=== PATIENT | male | born 1965 | race Caucasian/White ===

== ENCOUNTER 2016-08-16 18:59 | Emergency (ER) | payer MEDICAID ==
[~2016-08-16] VITALS: Ht 180.3 cm; Wt 99.8 kg
[~2016-08-16 18:59] MED LIST: GABAPENTIN300 MG PO; HYDROCODONE BIT1 T39 PO; LISINOPRIL 10MG10 MG PO; NICOTINE PATCH;21 MG TD; NORCO 325 MG-101 TAB PO; OMEPRAZOLE20 MG PO; PANTOPRAZOLE SO40 M1 PO
[2016-08-16 20:19] VITALS: BP 142/68
--- NOTE | 2016-08-16 20:25 | Emergency Room Report ---
History of Present Illness Time Seen by MD uLciano Presenting Problem in Triage Pt arrived:Walked Presenting Problem:PATIENT STATES HE HAS LOWER BACK PAIN FOR 2 DAYS. 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 N Clinical Suspician of Infection? N Mental Status: 1 - Regular (Normal Baseline) Sepsis Risk:Low Sepsis Risk Have you (or family members/close friends) recently traveled outside the [place]? N If Yes, where/when: Have you had exposure to infectious disease within the past month? TB? Other? Specify: Source patient, RN notes reviewed, family, old records Exam Limitations no limitations Comment hx of chronic low back pain with acute excerbation afterlifting - no bowel or bladder c/o- no cauda equina c/o Cardiac Chest Pain Chest pain indicative of cardiac No Timing/Duration this evening Severity moderate ALLERGIES Coded Allergies: ketorolac (From TORADOL) (Intermediate, 08/16/16) codeine (Mild, NA-NAUSEA 07/13/15) morphine (Mild, NA-NAUSEA/VOMITING 07/13/15) Home Medications Active Scripts NICOTINE (Nicotine Patch) 21 MG TD DAILY #14 PATCH Ref 1 Prov: 04/07/15 Reported Medications Pantoprazole Sodium 40 MG PO DAILY #30 Gabapentin (Gabapentin 300MG) 600 MG PO TID LISINOPRIL (Lisinopril) 10 MG PO DAILY History Medical History General CAD? No Angina: No [place]: No Hypertension? Yes Hyperlipidemia? No CHF? No DVT? No PE? No COPD? Yes Asthma? No Anemia? No GERD? No Gastric ulcers? No GI Bleed? No Hernia? No Thyroid Problems? No Hypothyroidism? No CVA? No Seizures? No Diabetes? No End Stage Renal Disease? No UTI? No Stones? No BPH? No GB Disease: No Nephritic Syndrome? No Asplenia? No Hepatitis? No Sickle Cell Disease? No Arthritis? Yes Migraines? No Cataracts? No Glaucoma? No MRSA? No HIV? No TB? No Anxiety? No Depression? No Cancer? No More? Yes Additional hx: BULGING DISK IN LOWER BACK Immunization Hx DT/Tetanus Unknown Pneumonia Never Had Surgical Hx Previous Surgery?Y L ARM REPAIR X4 BONE MARROW REMOVED L HIP Family History Family Hx Diabetes Yes CAD Yes Hypertension Yes Hyperlipidemia Yes Cancer Yes TB No Social History Smoking Hx Smoker: Current Every Day Smoker Tobacco: Yes Type Cigarettes Packs/day 1 1/2 - 2 Packs Alcohol Alcohol: Yes Drugs none Review of Systems All Other Systems Reviewed and Negative Constitutional denies fever Eyes denies drainage ENT denies: ear pain, epistaxis, throat pain. Respiratory denies cough, denies shortness of breath, denies wheezing Cardiovascular denies chest pain, denies palpitations, denies syncope Gastrointestinal denies abdominal pain, denies diarrhea, denies vomiting Genitourinary denies: dysuria, frequency, hesitancy, hematuria. Musculoskeletal see HPI, back pain, denies neck pain Skin denies rash Psychiatric/Neurological denies headache, denies seizure Physical Exam Vital Signs Vital Signs Date Time Temp Pulse Resp B/P Pulse O2 O2 Flow FiO2 Ox Delivery Rate 08/16 1905 98.0 89 20 142/68 98 - WBC >12,000 or <4,000 or 10% bands? 2 or more SIRS Criteria Met? B/P:142/68 MAP:92 Creatinine >2.0? UA output<0.5ml/kg/hr for 2 hrs? Platelet count >100,000? Lactate >2.0mmol/1? INR >1.2 or PTT > than 60 sec? Evidence of Organ Dysfunction? Provider documented clinical suspician of infection? N Sepsis Criteria Count: 1 Sepsis Risk: Low Sepsis Risk General Appearance no apparent distress Eye Exam - bilateral eye PERRL, bilateral eye EOMI Ear, Nose, Throat normal ENT inspection Neck supple Respiratory Status No: respiratory distress. 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 No Departure Departure Time of Disposition 2022 Disposition DC Home or Self Care(routine) Clinical Impression Primary Impression: Lumbosacral strain Qualifiers: Encounter type: initial encounter Qualified Code: S39.012A - Strain of muscle, fascia and tendon of lower back, initial encounter Condition STABLE Referrals Cb LLOYD,Garett Oneal (Family) Patient Instructions DI for Low Back Pain Additional Instructions offered steroids but no controlled subst - pt upset and cursing and left ed Discharge Counseling Counseled pt/family regarding diagnosis, follow up needs ED Critical Care Critical Care No at 2024
--- NOTE | 2016-08-16 20:25 | Emergency Room Report ---
History of Present Illness Time Seen by MD Luciano Presenting Problem in Triage Pt arrived:Walked Presenting Problem:PATIENT STATES HE HAS LOWER BACK PAIN FOR 2 DAYS. 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 N Clinical Suspician of Infection? N Mental Status: 1 - Regular (Normal Baseline) Sepsis Risk:Low Sepsis Risk Have you (or family members/close friends) recently traveled outside the [place]? N If Yes, where/when: Have you had exposure to infectious disease within the past month? TB? Other? Specify: Source patient, RN notes reviewed, family, old records Exam Limitations no limitations Comment hx of chronic low back pain with acute excerbation afterlifting - no bowel or bladder c/o- no cauda equina c/o Cardiac Chest Pain Chest pain indicative of cardiac No Timing/Duration this evening Severity moderate ALLERGIES Coded Allergies: ketorolac (From TORADOL) (Intermediate, 08/16/16) codeine (Mild, NA-NAUSEA 07/13/15) morphine (Mild, NA-NAUSEA/VOMITING 07/13/15) Home Medications Active Scripts NICOTINE (Nicotine Patch) 21 MG TD DAILY #14 PATCH Ref 1 Prov: 04/07/15 Reported Medications Pantoprazole Sodium 40 MG PO DAILY #30 Gabapentin (Gabapentin 300MG) 600 MG PO TID LISINOPRIL (Lisinopril) 10 MG PO DAILY History Medical History General CAD? No Angina: No [place]: No Hypertension? Yes Hyperlipidemia? No CHF? No DVT? No PE? No COPD? Yes Asthma? No Anemia? No GERD? No Gastric ulcers? No GI Bleed? No Hernia? No Thyroid Problems? No Hypothyroidism? No CVA? No Seizures? No Diabetes? No End Stage Renal Disease? No UTI? No Stones? No BPH? No GB Disease: No Nephritic Syndrome? No Asplenia? No Hepatitis? No Sickle Cell Disease? No Arthritis? Yes Migraines? No Cataracts? No Glaucoma? No MRSA? No HIV? No TB? No Anxiety? No Depression? No Cancer? No More? Yes Additional hx: BULGING DISK IN LOWER BACK Immunization Hx DT/Tetanus Unknown Pneumonia Never Had Surgical Hx Previous Surgery?Y L ARM REPAIR X4 BONE MARROW REMOVED L HIP Family History Family Hx Diabetes Yes CAD Yes Hypertension Yes Hyperlipidemia Yes Cancer Yes TB No Social History Smoking Hx Smoker: Current Every Day Smoker Tobacco: Yes Type Cigarettes Packs/day 1 1/2 - 2 Packs Alcohol Alcohol: Yes Drugs none Review of Systems All Other Systems Reviewed and Negative Constitutional denies fever Eyes denies drainage ENT denies: ear pain, epistaxis, throat pain. Respiratory denies cough, denies shortness of breath, denies wheezing Cardiovascular denies chest pain, denies palpitations, denies syncope Gastrointestinal denies abdominal pain, denies diarrhea, denies vomiting Genitourinary denies: dysuria, frequency, hesitancy, hematuria. Musculoskeletal see HPI, back pain, denies neck pain Skin denies rash Psychiatric/Neurological denies headache, denies seizure Physical Exam Vital Signs Vital Signs Date Time Temp Pulse Resp B/P Pulse O2 O2 Flow FiO2 Ox Delivery Rate 08/16 1905 98.0 89 20 142/68 98 - WBC >12,000 or <4,000 or 10% bands? 2 or more SIRS Criteria Met? B/P:142/68 MAP:92 Creatinine >2.0? UA output<0.5ml/kg/hr for 2 hrs? Platelet count >100,000? Lactate >2.0mmol/1? INR >1.2 or PTT > than 60 sec? Evidence of Organ Dysfunction? Provider documented clinical suspician of infection? N Sepsis Criteria Count: 1 Sepsis Risk: Low Sepsis Risk General Appearance no apparent distress Eye Exam - bilateral eye PERRL, bilateral eye EOMI Ear, Nose, Throat normal ENT inspection Neck supple Respiratory Status No: respiratory distress. 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 No Departure Departure Time of Disposition 2022 Disposition DC Home or Self Care(routine) Clinical Impression Primary Impression: Lumbosacral strain Qualifiers: Encounter type: initial encounter Qualified Code: S39.012A - Strain of muscle, fascia and tendon of lower back, initial encounter Condition STABLE Referrals Cb LLOYD,Garett Oneal (Family) Patient Instructions DI for Low Back Pain Additional Instructions offered steroids but no controlled subst - pt upset and cursing and left ed Discharge Counseling Counseled pt/family regarding diagnosis, follow up needs ED Critical Care Critical Care No at 2024
== END 2016-08-16 20:25 | disposition home or self-care (01) ==
LOC: ER 18:59
DX: S39.012A Strain of muscle, fascia and tendon of lower back, initial encounter (principal); I10 Essential (primary) hypertension; J44.9 Chronic obstructive pulmonary disease, unspecified; Z72.0 Tobacco use

== ENCOUNTER → 2017-05-18 | Outpatient (CLI) | payer MEDICAID | LOC: RT 13:36 | DX: R06.02 Shortness of breath (principal) ==